=== PATIENT | female | born 1965 | race Caucasian/White ===

== ENCOUNTER → 2021-01-21 09:06 | Outpatient (CLI) | payer SELFPAY ==
[2021-01-21 19:21] LABS: Hematocrit 34.6 % (36-46); Mean Corpuscular HGB Conc 34.6 % (30-36); Mean Corpuscular Hemoglobin 31.2 PG (26-34); Mean Corpuscular Volume 90.1 fL (80-100); Platelet Count 275 X10^3/uL (150-400); Red Blood Cell Count 3.84 X10^6/uL (4.0-5.2); Red Cell Distribution Width 14.2 % (11.6-14.8); White Blood Cell Count 6.6 X10^3/uL (4.5-11.0)
[2021-01-21 19:39] LABS: Hemoglobin A1C% w Est Avg Glu 4.9 % (4.0-6.0)
[2021-01-21 19:41] LABS: Alanine Aminotransferase 28 IU/L (<35); Albumin 4.4 g/dL (3.5-5.0); Albumin Globulin Ratio 1.7 (1.0-2.8); Alkaline Phosphatase 117 U/L (38-126); Aspartate Aminotransferase 30 IU/L (14-36); BUN Creatinine Ratio 13.9 (6-22); Bilirubin Total 0.3 mg/dL (0.2-1.3); Blood Urea Nitrogen 14 mg/dL (7-17); C-Reactive Protein Quant 1.2 mg/dL (<1.0); Calcium 10.1 mg/dL (8.4-10.2); Carbon Dioxide 31 mmol/L (22-32); Chloride 101 mmol/L (98-107); Estimated Glomerular Filt Rate 57.3 mL/min (>60); Globulin 2.6 g/dL (1.7-4.1); Glucose 125 mg/dL (70-100); HDL Cholesterol 70 mg/dL (40-60); HEMOLYSIS < 15 (0-50); Potassium 4.1 mmol/L (3.4-5.1); Sodium 139 mmol/L (137-145); Triglycerides 317 mg/dL (35-150)
[2021-01-21 19:48] LABS: Neutrophils Absolute Manual 3630 /uL (3000-5900); Total Cells Counted 100
[2021-01-21 19:50] LABS: Anisocytosis 1+
[2021-01-21 19:52] LABS: Cholesterol 360 mg/dL (140-199); LDL Cholesterol Calculated 227 mg/dL (<100)
[2021-01-21 20:32] LABS: Erythrocyte Sedimentation Rate 34 MM/HR (0-20)
[2021-01-21 20:34] LABS: Vitamin B12 696 pg/mL (239-931)
== END ==
PROVIDERS: PCP Family Medicine; Referring Provider Family Medicine; Visit Provider Family Medicine
DX: N18.30 Chronic kidney disease, stage 3 unspecified (principal); R70.0 Elevated erythrocyte sedimentation rate; D64.9 Anemia, unspecified; E78.2 Mixed hyperlipidemia; R73.01 Impaired fasting glucose
CPT/HCPCS: 80053; 80061; 82607; 83036; 85025; 85651; 86140

== ENCOUNTER → 2021-01-22 13:05 | Outpatient (CLI) | payer SELFPAY | PROVIDERS: PCP Family Medicine; Visit Provider Family Medicine | DX: K59.00 Constipation, unspecified (principal); R19.7 Diarrhea, unspecified | CPT/HCPCS: 87045; 87177; 87899 ==

== ENCOUNTER → 2021-06-19 08:54 | Outpatient (CLI) | payer OTHER, SELFPAY ==
--- NOTE | 2021-06-19 08:58 | DI.US.S_ITS ---
LIMITED ULTRASOUND OF RIGHT BREAST: 06/19/2021 CLINICAL: Occasional right breast pain. No prior exams were available for comparison. Real-time ultrasound of the right breast 3 o'clock region was performed. Khan scale images of the real-time examination were reviewed. No significant abnormalities were seen sonographically in the right breast. Specifically, no finding to correspond to the patient's mammographic abnormality. IMPRESSION: PROBABLY BENIGN There is no sonographic correlate to the patient's mammographic abnormality. A follow-up right mammogram in 6 months is recommended to demonstrate stability. Findings and recommendations were conveyed to the patient at time of exam. This exam was interpreted at Station ID: [id number]. Electronically Signed By: Violeta valladares/:06/19/2021 10:52:09 Entry: - 06/20/2021 12:07:01 Ultrasound BI-RADS: 3 Probably benign
--- NOTE | 2021-06-19 08:58 | DI.MG.S_ITS ---
BILATERAL DIGITAL DIAGNOSTIC MAMMOGRAM 3D/2D: 06/19/2021 CLINICAL: Diffuse bilateral breast pain. No prior exams were available for comparison. There are scattered fibroglandular elements in both breasts. There is a possible irregular asymmetry in the right breast at 3 o'clock in the retroareolar region. There is a possible 7 mm asymmetry in the left breast at 9 o'clock middle depth. No other significant masses or calcifications are seen in either breast. IMPRESSION: INCOMPLETE: NEEDS ADDITIONAL IMAGING EVALUATION The possible irregular asymmetry in the right breast at 3 o'clock in the retroareolar region is indeterminate. An ultrasound is recommended. The possible 7 mm asymmetry in the left breast at 9 o'clock middle depth is indeterminate. An ultrasound is recommended. There is no abnormality seen in either breast to correspond with the diffuse pain. Bilateral breast ultrasound was performed immediately following this exam. This exam was interpreted at Station ID: [id number]. NOTE: For mammograms, a report in lay terms will be sent to the patient. Approximately 15% of breast malignancies will not be visualized mammographically. In the management of a palpable breast mass, a negative mammogram must not discourage biopsy of a clinically suspicious lesion. Electronically Signed By: Violeta valladares/:06/19/2021 10:12:56 ACR BI-RADS Category 0: Incomplete 3340F
--- NOTE | 2021-06-19 10:12 | DI.US.S_ITS ---
LIMITED ULTRASOUND OF LEFT BREAST: 06/19/2021 CLINICAL: Patient returns today to evaluate an asymmetry in the left breast. No prior exams were available for comparison. Real-time ultrasound of the left breast 9 o'clock region was performed. Khan scale images of the real-time examination were reviewed. No significant abnormalities were seen sonographically in the left breast. Specifically, no finding to correspond to the patient's mammographic abnormality. No explanation for patient's pain. IMPRESSION: PROBABLY BENIGN There is no sonographic correlate to the patient's mammographic abnormality and no explanation for bilateral diffuse breast pain. A follow-up left mammogram in 6 months is recommended to demonstrate stability. Findings and recommendations were conveyed to the patient at time of exam. This exam was interpreted at Station ID: [id number]. Electronically Signed By: Violeta valladares/:06/19/2021 10:53:30 letter sent: Followup Recommended Ultrasound BI-RADS: 3 Probably benign
== END ==
PROVIDERS: PCP Nurse Practitioner Family; Referring Provider Obstetrics & Gynecology; Visit Provider Obstetrics & Gynecology
DX: R92.8 Other abnormal and inconclusive findings on diagnostic imaging of breast (principal); N64.4 Mastodynia; Z85.3 Personal history of malignant neoplasm of breast
CPT/HCPCS: 76642; 77066; G0279

== ENCOUNTER → 2021-09-03 12:50 | Outpatient (CLI) | payer OTHER, SELFPAY ==
--- NOTE | 2021-09-03 | DI.US.S_ITS ---
PROCEDURE: US SOFT TISSUE HEAD AND NECK INDICATIONS: Localized swelling, mass and lump, neck TECHNIQUE: Real-time scanning was performed of the neck region of interest, with image documentation. COMPARISON: None. FINDINGS: Sonographic images of the neck at for areas of palpable concern demonstrate a single normal appearing lymph node measuring 7 x 11 x 6 mm. Fatty hilum is present. This is identified in the superior left neck. Remaining areas demonstrate no area of mass lesion architectural distortion or fluid collection. IMPRESSION: Single normal appearing lymph node. Remaining portions of the exam are unremarkable. Dictated by: Nichole Marie M.D. on 09/03/2021 at 17:04 Approved by: Nichole Marie M.D. on 09/03/2021 at 17:05
== END ==
PROVIDERS: PCP Nurse Practitioner Family; Referring Provider Family Medicine; Visit Provider Family Medicine
DX: R22.1 Localized swelling, mass and lump, neck (principal)
CPT/HCPCS: 76536

== ENCOUNTER → 2022-04-30 13:34 | Outpatient (CLI) | payer OTHER, SELFPAY ==
--- NOTE | 2022-04-30 13:35 | DI.MG.S_ITS ---
BILATERAL DIGITAL DIAGNOSTIC MAMMOGRAM 3D/2D: 04/30/2022 CLINICAL: Short term follow up of the left breast, due for bilateral imaging. Comparison is made to exams dated: 06/19/2021 ultrasound, 06/19/2021 ultrasound, and 06/19/2021 mammogram - [facility]. Both breasts are heterogeneously dense, which may obscure small masses (category c / 51-75% glandular tissue). The possible asymmetry in the right breast at 3 o'clock in the retroareolar region is no longer seen. The possible asymmetry in the left breast at 9 o'clock middle depth is no longer seen. No other significant masses or calcifications are seen in either breast. IMPRESSION: BENIGN There is no mammographic evidence of malignancy. Return to annual mammogram screening schedule is recommended. Based on the Tyrer Cuzick model (a risk assessment model) the patient's lifetime risk is 11.3% and her 10 year risk is 3.2%. According to the ACR, ACS, and NCCN guidelines, an annual breast MRI exam along with mammogram is recommended if the patient's lifetime risk is 20% or greater. This exam was interpreted at Station ID: [id number]. NOTE: For mammograms, a report in lay terms will be sent to the patient. Approximately 15% of breast malignancies will not be visualized mammographically. In the management of a palpable breast mass, a negative mammogram must not discourage biopsy of a clinically suspicious lesion. Electronically Signed By: Aubree dhillon/:04/30/2022 14:10:14 letter sent: Normal Exam ACR BI-RADS Category 2: Benign Finding(s) 3342F
== END ==
PROVIDERS: PCP Nurse Practitioner Family; Referring Provider Obstetrics & Gynecology; Visit Provider Obstetrics & Gynecology
DX: R92.8 Other abnormal and inconclusive findings on diagnostic imaging of breast (principal); N64.89 Other specified disorders of breast
CPT/HCPCS: 77066; G0279

== ENCOUNTER → 2023-01-06 08:48 | Outpatient (CLI) | payer BC, SELFPAY ==
[2023-01-06 10:47] LABS: Follicle Stimulating Hormone 72.2 mIU/mL; Luteinizing Hormone 29.3 mIU/mL
[2023-01-06 10:48] LABS: Prolactin 9.1 ng/mL (3.0-18.6)
[2023-01-06 11:02] LABS: Cortisol AM (Before 10AM) 10.7 ug/dL (4.46-22.7)
[2023-01-06 11:05] LABS: Testosterone 15.2 ng/dL (5.71-77.0)
[2023-01-07 08:54] LABS: Adrenocorticotropic Hormone 18.7 pg/mL (7.2-63.3)
[2023-01-07 13:38] LABS: Dehydroepiandrosterone Sulfate 89.6 ug/dL (29.4-220.5)
[2023-01-08 14:53] LABS: IGF Binding Protein -3 4164 ug/L (2306-5703)
[2023-01-08 16:22] LABS: IGF-1 105 ng/mL (65-216)
[2023-01-11 23:08] LABS: Cortisol Fr ug/24hr urine 57 ug/24 hr (6-42); Cortisol, Free, Urine 41 ug/L (Undefined)
== END ==
PROVIDERS: PCP Nurse Practitioner Family; Referring Provider Obstetrics & Gynecology Gynecology; Visit Provider Obstetrics & Gynecology Gynecology
DX: N95.1 Menopausal and female climacteric states (principal); E03.9 Hypothyroidism, unspecified; J01.90 Acute sinusitis, unspecified
CPT/HCPCS: 36415; 82024; 82530; 82533; 82627; 83001; 83002; 83520; 84146; 84305; 84403

== ENCOUNTER 2023-10-14 12:21 | Emergency (ER) | payer BC, SELFPAY ==
[2023-10-14 12:23] VITALS: BP 144/73; PULSE 75; RESP 14; TEMP 36.2; O2SAT 98; BMI 22.7
--- NOTE | 2023-10-14 12:26 | EKG_ITS ---
[facility] [address] [place] [address] Test Date: 2023-10-14 Pat Name: Regina Leggett Department: Room: Gender: Female [employer]: : 1965 Requested By: Order Number: [id number] Reading MD: Chuck Guerra MD Measurements Intervals [place] Rate: 69 P: 72 IN: 178 QRS: 65 QRSD: 70 T: 66 QT: 378 QTc: 405 Interpretive Statements Normal sinus rhythm with sinus arrhythmia Electronically Signed On 10-15-2023 7:36:05 PDT by Chuck Guerra MD
--- NOTE | 2023-10-14 12:49 | ED_ITS ---
HPI - Abdominal Pain <Epi Gee PA-C - Last Filed: 10/14/23 14:56> General Chief Complaint: Abdominal Pain Stated Complaint: Gallbladder Issue, Abd Pain Time Seen by Provider: 10/14/23 12:49 Source: patient Mode of arrival: Ambulatory History of Present Illness HPI narrative: This is a 58-year-old female presents emergency department due to epigastric pain for the last 3 days with some mild nausea. Denies any vomiting, blood in the stool, diarrhea. No recent foreign travel. States pain is waxing and waning but states as source is a 7 to 8/10. She denies any GERD like symptoms. No history of this in the past. History of oophorectomy 6 years ago. Related Data Previous Rx's Medication Instructions Recorded sertraline 50 mg tablet (Zoloft) 100 mg (2 x 50 mg) PO DAILY 01/21/21 depression #180 tabs sumatriptan succinate 50 mg tablet See Rx Instructions PO .COMPLEX 01/21/21 #20 tabs simvastatin 40 mg tablet 40 mg PO BEDTIME #90 tabs 04/08/21 Allergies Allergy/AdvReac Type Severity Reaction Status Date / Time adhesive tape Allergy Mild Verified 10/14/23 12:23 Review of Systems <Epi Gee PA-C - Last Filed: 10/14/23 14:56> Review of Systems Narrative: GENERAL: Denies chills, fatigue, malaise, fever, sweats. HEENT: Denies sinus pain, ear pain, sore throat, difficulty swallowing, dizziness. RESPIRATORY: Denies dyspnea, cough, wheezing, hemoptysis, sputum. CARDIOVASCULAR: Denies chest pain, palpitations, orthopnea, edema, GASTROINTESTINAL: Reports nausea and abdominal pain : Denies dysuria, frequency, incontinence, hematuria, urinary retention. MUSCULOSKELETAL: denies weakness, joint pain, or bony pain SKIN: Denies rash, skin lesions, or other NEUROLOGIC: Denies weakness, headache, numbness, change in speech, confusion, seizures, incoordination. PSYCHIATRIC: No concerning psychosocial issues. 12 point review of systems is negative except for those stated above Patient History <Epi Gee PA-C - Last Filed: 10/14/23 14:56> Medical History (Updated 10/14/23 @ 14:56 by Epi Gee PA-C) PTSD (post-traumatic stress disorder) (~2019) Anxiety (~2019) Peripheral neuropathy Migraines Headache ADHD Osteoporosis Osteopenia Foot pain Ankle pain Tinnitus (~2018) GERD (gastroesophageal reflux disease) Empty sella (~2019) Autonomic disease Breast cancer (~2015) Surgical History (Updated 03/03/21 @ 20:55 by Stephania Orellana) Anesthesia History of lumpectomy (~2015) Ovarian cyst History of oophorectomy (~2017) Family History (Updated 03/03/21 @ 20:58 by Stephania Orellana) Father Diabetes mellitus Hyperlipidemia Mother Diabetes mellitus Brother Diabetes mellitus Sister Diabetes mellitus Grandfather Colitis Grandmother No problems noted. Grandfather History of heart disease Grandmother No problems noted. Social History Smoking Status: Former smoker Smoking Status: Former smoker alcohol intake frequency: holidays/special occasions only Substance Use Type: marijuana Exam <Epi Gee PA-C - Last Filed: 10/14/23 14:56> Narrative Exam Narrative: GENERAL: Well-developed patient, in mild distress. HEAD: Atraumatic. Normocephalic. EYES: Pupils equal round and reactive. Extraocular motions intact. No scleral icterus. No injection or drainage. ENT: Nose without bleeding, purulent drainage. Throat without erythema, tonsillar hypertrophy or exudate. Airway patent. NECK: Trachea midline. Non tender EXTREMITIES: No edema or joint tenderness. NEURO: AOx3. SKIN: No rash or erythema of visible areas Abdomen: Very mild tenderness to palpation to the epigastric area Initial Vital Signs Initial Vital Signs: Vital Signs Temperature 97.2 F L 10/14/23 12:23 Pulse Rate 75 10/14/23 12:23 Respiratory Rate 14 10/14/23 12:23 Blood Pressure 144/73 H 10/14/23 12:23 Pulse Oximetry 98 10/14/23 12:23 Oxygen Delivery Method Room Air 10/14/23 12:23 <Agusto Braun MD - Last Filed: 10/14/23 18:46> Initial Vital Signs Initial Vital Signs: Vital Signs Temperature 97.2 F L 10/14/23 12:23 Pulse Rate 75 10/14/23 12:23 Respiratory Rate 14 10/14/23 12:23 Blood Pressure 144/73 H 10/14/23 12:23 Pulse Oximetry 98 10/14/23 12:23 Oxygen Delivery Method Room Air 10/14/23 12:23 Course <Epi Gee PA-C - Last Filed: 10/14/23 14:56> Orders Ordered: ED Orders 10/14/23 12:26 EKG-12 Lead Stat 10/14/23 12:44 Complete Blood Count AUTO DIFF Stat Comprehensive Metabolic Panel Stat Lipase Stat 10/14/23 13:04 US abdomen limited Stat Discontinued Medications Ondansetron HCl (Ondansetron 4 Mg/2 Ml Inj) 4 mg IV NOW PRN PRN Reason: Nausea And Vomiting Ondansetron HCl (Ondansetron 4 Mg Odt) 4 mg PO NOW PRN PRN Reason: Nausea And Vomiting Vital Signs Vital signs: Vital Signs - 8 hr 10/14/23 12:23 10/14/23 15:02 Temperature 97.2 F L Pulse Rate 75 74 Respiratory Rate 14 16 Blood Pressure 144/73 H 142/70 H Pulse Oximetry 98 99 Oxygen Delivery Method Room Air Room Air <Agusto Braun MD - Last Filed: 10/14/23 18:46> Orders Ordered: ED Orders 10/14/23 12:26 EKG-12 Lead Stat 10/14/23 12:44 Complete Blood Count AUTO DIFF Stat Comprehensive Metabolic Panel Stat Lipase Stat 10/14/23 13:04 US abdomen limited Stat Discontinued Medications Ondansetron HCl (Ondansetron 4 Mg/2 Ml Inj) 4 mg IV NOW PRN PRN Reason: Nausea And Vomiting Ondansetron HCl (Ondansetron 4 Mg Odt) 4 mg PO NOW PRN PRN Reason: Nausea And Vomiting Vital Signs Vital signs: Vital Signs - 8 hr 10/14/23 12:23 10/14/23 15:02 Temperature 97.2 F L Pulse Rate 75 74 Respiratory Rate 14 16 Blood Pressure 144/73 H 142/70 H Pulse Oximetry 98 99 Oxygen Delivery Method Room Air Room Air MDM - Abdominal Pain <Epi Gee PA-C - Last Filed: 10/14/23 14:56> Lab Data 10/14/23 12:44 10/14/23 12:44 Labs: Lab Results 10/14/23 Range/Units 12:44 WBC 6.9 (4.5-11.0) X10^3/uL RBC 4.19 (4.0-5.2) X10^6/uL Hgb 12.9 (12.0-16.0) g/dL Hct 38.3 (36-46) % MCV 91.2 (80-100) fL MCH 30.7 (26-34) PG MCHC 33.7 (30-36) % RDW 13.1 (11.6-14.8) % Plt Count 252 (150-400) X10^3/uL Neut % (Auto) 66.6 (50-75) % Lymph % (Auto) 22.2 L (25-40) % [place] % (Auto) 6.4 (3-14) % Eos % (Auto) 4.0 (2-4) % Baso % (Auto) 0.8 (0-2) % Neut # (Auto) 4600 (6218-8746) /uL Lymph # (Auto) 1500 (4631-2225) /uL [place] # (Auto) 400 (0-900) /uL Eos # (Auto) 300 (0-450) /uL Baso # (Auto) 100 (0-100) /uL Sodium 137 (137-145) mmol/L Potassium 4.3 (3.4-5.1) mmol/L Chloride 105 (98-107) mmol/L Carbon Dioxide 28 (22-32) mmol/L BUN 12 (7-17) mg/dL Creatinine 0.85 (0.52-1.04) mg/dL Estimated GFR > 60 (>60) mL/min BUN/Creatinine Ratio 14.1 (6-22) Glucose 98 (70-100) mg/dL Calcium 9.1 (8.4-10.2) mg/dL Total Bilirubin 0.4 (0.2-1.3) mg/dL AST 66 H (14-36) IU/L ALT 67 H (<35) IU/L Alkaline Phosphatase 111 (38-126) U/L Total Protein 7.3 (6.3-8.2) g/dL Albumin 4.2 (3.5-5.0) g/dL Globulin 3.1 (1.7-4.1) g/dL Albumin/Globulin Ratio 1.4 (1.0-2.8) Lipase 110 (23-300) U/L Point of care testing: Urine Dip Bedside Urine Glucose Negative Bedside Urine Bilirubin - Negative Bedside Urine Ketone - Negative Urine Specific [place] 1.010 Bedside Urine Occult Blood - Negative Bedside Urine pH 7.0 Bedside Urine Protein - Negative Bedside Urine Urobilinogen - Negative Bedside Urine Nitrite - Negative Bedside Urine Leukocytes - Negative Esterase Imaging Data US - abdomen: Radiologist's Impression: [address] [address] Ultrasound Report Signed Patient: Regina Leggett MR#: [id number] : 1965 Acct:[id number] Age/Sex: 58 / F Date of Service: 10/14/23 Loc: ED Accession Number: [id number] Procedure: US abdomen limited Ordering Provider: Epi Gee PA-C PROCEDURE: US ABDOMEN LIMITED INDICATIONS: RUQ PAIN TECHNIQUE: Real-time scanning was performed of the abdominal and retroperitoneal organs, with image documentation. COMPARISON: None. FINDINGS: Liver: Liver is normal in size and homogeneous in echotexture. Gallbladder: No gallstones. No wall thickening. No pericholecystic edema. Negative sonographic Beck's sign. Biliary ducts: Intrahepatic bile ducts are non-dilated. Extrahepatic bile duct caliber measures 6 mm. Normal is 6-7 mm or less in diameter, or 10 mm or less post-cholecystectomy. Pancreas: Visualized portions of the pancreas are sonographically normal. Miscellaneous: No free abdominal fluid. IMPRESSION: Unremarkable right upper quadrant ultrasound. Dictated by: Jose Luis Miranda M.D. on 10/14/2023 at 14:31 Approved by: Jose Luis Miranda M.D. on 10/14/2023 at 14:32 ECG Data Interpretation: 1258 EKG is normal sinus rhythm rate 69 and free of any signs of ischemia or ectopy. No ST segmental elevation or depression. No T wave inversions MDM Narrative Medical decision making narrative: ED course: This is a 58-year-old female presenting to the emergency department complaining of vague upper abdominal pain. All lab work was unremarkable other than mildly elevated liver enzymes. Ultrasound ordered on patient request which was unremarkable. No liver abnormalities. Discussed pantoprazole or other symptomatic management but patient declined. Patient was speak with the primary care provider for further workup management. Lipase within normal limits. Low concern for any kind of emergent pathology at this time. CT scan discussed with shared decision-making utilized and then ordered. CC: Upper abdominal pain Complicating co-morbidities: As below Data collected from: Previous notes Medical records reviewed: Patient was not been to this emergency department in the past. Last saw her primary care provider 2 years ago. Patient thought she had a parasite in her stool as well as skin. Previous providers have thought that she has a thought disorder as she was had extensive medical evaluations without any findings. Patient had a P and so cultures with the evidence of disease as parasitic. History of hyperlipidemia. History of anxiety, breast cancer, GERD, osteoporosis, peripheral neuropathy. History of oophorectomy in 2017. History of chronic kidney disease. History of chronic recurrent diarrhea. Differential considered, but not limited to: Pancreatitis, hepatitis, gastroenteritis Exam documented above, pertinent findings include: Mild epigastric tenderness to palpation Lab Test results independently reviewed as above. Pertinent findings: Lab work within normal limits other than very mild elevated liver enzymes Imaging studies independently reviewed: Abdominal ultrasound negative. Scores Used: None MIPS Elements: None Consultations: None Treatments: None Re-evaluations: None Discussion: Discussed plan with the patient was comfortable with the plan Diagnosis: Abdominal pain Disposition: see below, along with detailed discharge instructions that have been reviewed with patient as well as indications for ED re-evaluation and additional outpatient follow up <Agusto Braun MD - Last Filed: 10/14/23 18:46> Lab Data Labs: Lab Results 10/14/23 Range/Units 12:44 WBC 6.9 (4.5-11.0) X10^3/uL RBC 4.19 (4.0-5.2) X10^6/uL Hgb 12.9 (12.0-16.0) g/dL Hct 38.3 (36-46) % MCV 91.2 (80-100) fL MCH 30.7 (26-34) PG MCHC 33.7 (30-36) % RDW 13.1 (11.6-14.8) % Plt Count 252 (150-400) X10^3/uL Neut % (Auto) 66.6 (50-75) % Lymph % (Auto) 22.2 L (25-40) % [place] % (Auto) 6.4 (3-14) % Eos % (Auto) 4.0 (2-4) % Baso % (Auto) 0.8 (0-2) % Neut # (Auto) 4600 (6118-9996) /uL Lymph # (Auto) 1500 (8880-1470) /uL [place] # (Auto) 400 (0-900) /uL Eos # (Auto) 300 (0-450) /uL Baso # (Auto) 100 (0-100) /uL Sodium 137 (137-145) mmol/L Potassium 4.3 (3.4-5.1) mmol/L Chloride 105 (98-107) mmol/L Carbon Dioxide 28 (22-32) mmol/L BUN 12 (7-17) mg/dL Creatinine 0.85 (0.52-1.04) mg/dL Estimated GFR > 60 (>60) mL/min BUN/Creatinine Ratio 14.1 (6-22) Glucose 98 (70-100) mg/dL Calcium 9.1 (8.4-10.2) mg/dL Total Bilirubin 0.4 (0.2-1.3) mg/dL AST 66 H (14-36) IU/L ALT 67 H (<35) IU/L Alkaline Phosphatase 111 (38-126) U/L Total Protein 7.3 (6.3-8.2) g/dL Albumin 4.2 (3.5-5.0) g/dL Globulin 3.1 (1.7-4.1) g/dL Albumin/Globulin Ratio 1.4 (1.0-2.8) Lipase 110 (23-300) U/L Point of care testing: Urine Dip Bedside Urine Glucose Negative Bedside Urine Bilirubin - Negative Bedside Urine Ketone - Negative Urine Specific [place] 1.010 Bedside Urine Occult Blood - Negative Bedside Urine pH 7.0 Bedside Urine Protein - Negative Bedside Urine Urobilinogen - Negative Bedside Urine Nitrite - Negative Bedside Urine Leukocytes - Negative Esterase Discharge Plan Departure Patient Disposition: Home Clinical Impression: Abdominal pain Activity Restrictions/Additional Instructions: Thank you for coming to the [facility] Emergency Department today. Your lab work today was very reassuring. Your liver enzymes were very mildly elevated and I recommend you speak with the primary care provider about this. Your ultrasound of the abdomen was also unremarkable. Please return to the emergency department if you develop any severe abdominal pain, or any other concerning signs or symptoms. I hope you feel better soon. Please follow up with your primary care provider within a week if your symptoms continue. If you do not have a primary care provider please contact the [facility] Resource line at [phone]. They will ask some questions about your medical history and help you get set up with a provider in the community. Prescriptions: No Action sertraline [Zoloft] 50 mg tablet 100 mg PO DAILY Qty: 180 3RF sumatriptan succinate 50 mg tablet See Rx Instructions PO .COMPLEX Qty: 20 3RF Rx Instructions: take 1 tab at onset of headache; if no relief may repeat 1 tab after at least 2 hrs; max = 4 tabs/24 hr PO simvastatin 40 mg tablet 40 mg PO BEDTIME Qty: 90 3RF Referrals: Opal Beck ARNP [Primary Care Provider] - Stand Alone Forms: Patient Portal/API ED Sign-out <Agusto Braun MD - Last Filed: 10/14/23 18:46> Cosign ED Attending Cosignature Attestation: I was immediately available in the department for consultation. This documentation has been reviewed and I agree with assessment and plan. Supervised by Agusto Braun MD
--- NOTE | 2023-10-14 13:04 | DI.US.S_ITS ---
PROCEDURE: US ABDOMEN LIMITED INDICATIONS: RUQ PAIN TECHNIQUE: Real-time scanning was performed of the abdominal and retroperitoneal organs, with image documentation. COMPARISON: None. FINDINGS: Liver: Liver is normal in size and homogeneous in echotexture. Gallbladder: No gallstones. No wall thickening. No pericholecystic edema. Negative sonographic Beck's sign. Biliary ducts: Intrahepatic bile ducts are non-dilated. Extrahepatic bile duct caliber measures 6 mm. Normal is 6-7 mm or less in diameter, or 10 mm or less post-cholecystectomy. Pancreas: Visualized portions of the pancreas are sonographically normal. Miscellaneous: No free abdominal fluid. IMPRESSION: Unremarkable right upper quadrant ultrasound. Dictated by: Jose Luis Miranda M.D. on 10/14/2023 at 14:31 Approved by: Jose Luis Miranda M.D. on 10/14/2023 at 14:32
[2023-10-14 13:06] LABS: Add Manual Diff / Slide Review NO; Basophils Absolute Auto 100 /uL (0-100); Basophils Percent Auto 0.8 % (0-2); Eosinophils Absolute Auto 300 /uL (0-450); Hematocrit 38.3 % (36-46); Hemoglobin 12.9 g/dL (12.0-16.0); Lymphocytes Absolute Auto 1500 /uL (1100-4500); Lymphocytes Percent Auto 22.2 % (25-40); Mean Corpuscular HGB Conc 33.7 % (30-36); Mean Corpuscular Hemoglobin 30.7 PG (26-34); Mean Corpuscular Volume 91.2 fL (80-100); Monocytes Absolute Auto 400 /uL (0-900); Monocytes Percent Auto 6.4 % (3-14); Neutrophils Absolute Auto 4600 /uL (1500-7000); Neutrophils Percent Auto 66.6 % (50-75); Platelet Count 252 X10^3/uL (150-400); Red Blood Cell Count 4.19 X10^6/uL (4.0-5.2); Red Cell Distribution Width 13.1 % (11.6-14.8); White Blood Cell Count 6.9 X10^3/uL (4.5-11.0)
[2023-10-14 13:20] LABS: Alanine Aminotransferase 67 IU/L (<35); Albumin 4.2 g/dL (3.5-5.0); Albumin Globulin Ratio 1.4 (1.0-2.8); Alkaline Phosphatase 111 U/L (38-126); Aspartate Aminotransferase 66 IU/L (14-36); BUN Creatinine Ratio 14.1 (6-22); Bilirubin Total 0.4 mg/dL (0.2-1.3); Blood Urea Nitrogen 12 mg/dL (7-17); Calcium 9.1 mg/dL (8.4-10.2); Carbon Dioxide 28 mmol/L (22-32); Chloride 105 mmol/L (98-107); Estimated Glomerular Filt Rate > 60 mL/min (>60); Globulin 3.1 g/dL (1.7-4.1); Glucose 98 mg/dL (70-100); HEMOLYSIS < 15 (0-50); Lipase 110 U/L (23-300); Potassium 4.3 mmol/L (3.4-5.1); Sodium 137 mmol/L (137-145); Total Protein 7.3 g/dL (6.3-8.2)
[2023-10-14 15:02] VITALS: BP 142/70; PULSE 74; RESP 16; O2SAT 99
== END 2023-10-14 15:03 | disposition home or self-care (01) ==
PROVIDERS: Emergency Medicine; Emergency Provider Physician Assistant Medical; PCP Nurse Practitioner Family
DX: R10.13 Epigastric pain (principal); R11.0 Nausea; I49.8 Other specified cardiac arrhythmias
CPT/HCPCS: 36415; 76705; 80053; 81003; 83690; 85025; 93005; 93010; 99283; 99284

== ENCOUNTER → 2024-11-22 10:21 | Outpatient (CLI) | payer BC, SELFPAY ==
[2024-11-22 11:31] LABS: Add Manual Diff / Slide Review NO; Hematocrit 35.7 % (36-46); Hemoglobin 12.1 g/dL (12.0-16.0); Lymphocytes Absolute Auto 1400 /uL (1100-4500); Mean Corpuscular HGB Conc 34.1 % (30-36); Mean Corpuscular Hemoglobin 31.1 PG (26-34); Mean Corpuscular Volume 91.4 fL (80-100); Platelet Count 248 X10^3/uL (150-400)
[2024-11-22 12:09] LABS: Alanine Aminotransferase 73 IU/L (<35); Albumin 4.0 g/dL (3.5-5.0); Albumin Globulin Ratio 1.6 (1.0-2.8); Alkaline Phosphatase 111 U/L (38-126); Blood Urea Nitrogen 10 mg/dL (7-17); Calcium 9.6 mg/dL (8.4-10.2); Carbon Dioxide 32 mmol/L (22-32); Chloride 100 mmol/L (98-107); Cholesterol 292 mg/dL (140-199); Estimated Glomerular Filt Rate > 60 mL/min (>60); Globulin 2.5 g/dL (1.7-4.1); Glucose 100 mg/dL (70-99); HDL Cholesterol 70 mg/dL (40-60); HEMOLYSIS < 15 (0-50); Potassium 4.6 mmol/L (3.4-5.1); Sodium 134 mmol/L (137-145); Total Protein 6.5 g/dL (6.3-8.2); Triglycerides 230 mg/dL (35-150)
[2024-11-22 12:24] LABS: Vitamin D 25 Hydroxy (D3) 19.3 ng/mL (30.0-100.0)
[2024-11-22 12:25] LABS: Free T3, Triiodothyronine Free 4.32 pg/mL (2.77-5.27); Free T4, Direct Thyroxine 1.06 ng/dL (0.78-2.19)
[2024-11-22 12:39] LABS: Thyroid Stimulating Hormone 4.89 uIU/mL (0.47-4.68)
[2024-11-22 13:16] LABS: Folate 1.6 ng/mL (2.76-20.0); Vitamin B12 828 pg/mL (239-931)
[2024-11-23 04:08] LABS: CRP, High Sensitivity 5.26 mg/L (0.00-3.00)
[2024-11-24 19:39] LABS: % CD8-/CD57+ Lymphocytes 2.2 % (2.0-17.0); Absolute CD8-/CD57+ Lymph 33 /uL (60-360); Hemacrit 31.5 % (34.0-46.6); Hemoglobin 10.4 g/dL (11.1-15.9); Lymphocytes (Absolute) 1.5 x10E3/uL (0.7-3.1); MCHC 31.0 pg (26.6-33.0); MCHC 33.0 g/dL (31.5-35.7); MCV 94 fL (79-97); RDW 12.6 % (11.7-15.4)
[2024-11-25 15:09] LABS: Triiodothyronine T3 Reverse 9.2 ng/dL (.)
[2024-11-26 23:39] LABS: Magnesium, RBC 5.4 mg/dL (3.7-7.0)
[2024-11-28 00:07] LABS: Percent Free Testosterone 1.73 % (0.50-2.80)
[2024-12-01 10:11] LABS: Dehydroepiandrosterone (DHEA) 88 ng/dL (21-402)
== END ==
PROVIDERS: PCP Nurse Practitioner Family; Referring Provider Obstetrics & Gynecology Gynecology; Visit Provider Obstetrics & Gynecology Gynecology
DX: K22.4 Dyskinesia of esophagus (principal); R07.9 Chest pain, unspecified; R10.13 Epigastric pain; R53.83 Other fatigue
CPT/HCPCS: 36415; 80053; 80061; 82306; 82607; 82627; 82746; 83615; 83735; 84140; 84402; 84403; 84439; 84443; 84480; 84481; 84482; 85025; 85651; 86140; 86356; 86357